=== PATIENT | female | born 1995 | race Caucasian/White ===

== ENCOUNTER 2016-03-09 12:35 | Emergency (ER) | payer OTHER ==
[~2016-03-09] VITALS: Ht 177.8 cm; Wt 81.1 kg
[2016-03-09 13:50] LABS: HEMATOCRIT 37.7 % (36.0-46.0); MCH 30.3 PG (29.0-34.0); MCV 89.3 FL (83-99); MEAN PLAT.VOLUME 10.5 uM^3 (9.5-12.4); PLATELET COUNT 292 K/uL (156-360); RBC DIS.WIDTH-CV 13.4 % (11.8-14.6); RBC DIS.WIDTH-SD 43.1 % (39-53); RED BLOOD COUNT 4.22 M/uL (3.80-5.20); WHITE BLOOD COUNT 7.5 K/uL (4.1-10.2)
[2016-03-09 14:02] LABS: CHLORIDE 108 mEq/L (99-109); POTASSIUM 4.1 mEq/L (3.7-5.4); SODIUM 140 mEq/L (136-147)
[2016-03-09 14:04] LABS: GLUCOSE 88 mg/dL (70-99)
[2016-03-09 14:05] LABS: ANION GAP 6 MEQ/L (2-14)
[2016-03-09 14:06] LABS: TOTAL BILIRUBIN 0.4 mg/dL (0.0-1.0)
[2016-03-09 14:07] LABS: ALKALINE PHOSPHATASE 84 IU/L (3-129)
[2016-03-09 14:09] LABS: UREA NITROGEN (BUN) 12 mg/dL (9-23)
[2016-03-09 14:10] LABS: GFR ESTIMATE (CALCULATED) > 59 mL/min/
[2016-03-09 14:18] LABS: QUANTITATIVE HCG < 4.0 MIU/ML
[2016-03-09 15:04] LABS: ADD MIUA? NO; BILIRUBIN NEGATIVE; BLOOD NEGATIVE; GLUCOSE (STRIP) NEGATIVE; KETONES NEGATIVE; LEUKOCYTES NEGATIVE; NITRITE NEGATIVE; PH, URINE 6.5 (5-8); PROTEIN (STRIP) NEGATIVE; UCUL ADDED? NO; UROBILINOGEN 0.2 MG/DL (0.2-1.0)
[2016-03-09 15:05] LABS: COLOR LT YELLOW ((YELLOW))
[2016-03-09] MEDS ORDERED: FLEXERIL10 MG PO (15:45)
[2016-03-09] MEDS ORDERED: NAPROSYN500 MG PO (15:45)
[2016-03-09 16:21] VITALS: BP 117/80
== END 2016-03-09 16:22 | disposition home or self-care (01) ==
LOC: EME 12:35 → EXP 12:35
DX: S06.9X0A Unspecified intracranial injury without loss of consciousness, initial encounter (principal); S06.0X0A Concussion without loss of consciousness, initial encounter; V00.311A Fall from snowboard, initial encounter; Y93.23 Activity, snow (alpine) (downhill) skiing, snowboarding, sledding, tobogganing and snow tubing
CPT/HCPCS: 80053; 81003; 84702; 85027; 99281; 99284